=== PATIENT | male | born 1965 | race Caucasian/White ===

== ENCOUNTER 2017-10-06 10:39 | Outpatient (CLI) | payer OTHER ==
[~2017-10-06 10:39] MED LIST: CLARITIN10 M1 PO; IBERSALTAN; NORTUSS-EX LIQ118 ML PO; PROVENTIL HFA6.7 GM IH; PYRIDIUM200 MG PO; VASOTEC20 M1 PO; VASOTEC20 MG
== END 2017-10-06 15:43 | disposition home or self-care (01) ==
LOC: SONOGRAMA 10:39
DX: N30.00 Acute cystitis without hematuria (principal); N40.1 Benign prostatic hyperplasia with lower urinary tract symptoms

== ENCOUNTER 2017-10-07 10:06 | Outpatient (CLI) | payer OTHER | END 2017-10-07 10:21 | disposition home or self-care (01) | LOC: LAB 10:06 | DX: Z00.00 Encounter for general adult medical examination without abnormal findings (principal); R53.81 Other malaise ==

== ENCOUNTER 2020-02-21 06:34 | Emergency (ER) | payer OTHER ==
[~2020-02-21] VITALS: Ht 170.2 cm; Wt 95.3 kg
[2020-02-21] MEDS ORDERED: DICLOFENAC SODI75 MG PO (10:34)
== END 2020-02-21 10:44 | disposition home or self-care (01) ==
LOC: ER 06:34
DX: M94.0 Chondrocostal junction syndrome [Tietze] (principal); M25.511 Pain in right shoulder; R07.89 Other chest pain